=== PATIENT | female | born 1970 | race Caucasian/White ===

== ENCOUNTER → 2017-03-03 | Outpatient (CLI) | payer BC ==
[2016-04-04 18:50] VITALS: BP 151/86
[~2017-03-03] MED LIST: ANTIVERT 25MG25 MG; HCTZ 25MG25 MG; HYDROXYZINE PAM25 M1 PO; LEVOTHYROXINE PO; LISINOPRIL10 MG PO; PHENERGAN25 M4 RC; POTASSIUM20 MEQ PO; PREMARIN1.25 MG PO; PRILOSEC 20MG20 MG PO; PROVENTIL0.09 MG/A1 IH; SINGULAIR10 MG PO; VENLAFAXINE37.5 M1 PO
== END ==
LOC: LAB 07:04
DX: E03.4 Atrophy of thyroid (acquired) (principal); R53.83 Other fatigue

== ENCOUNTER → 2018-02-22 | Outpatient (CLI) | payer BC ==
[2016-04-04 18:50] VITALS: BP 151/86
== END ==
LOC: RAD 12:24
DX: M79.662 Pain in left lower leg (principal); M79.661 Pain in right lower leg; R22.43 Localized swelling, mass and lump, lower limb, bilateral; Z98.890 Other specified postprocedural states

== ENCOUNTER → 2018-06-03 | Outpatient (CLI) | payer BC ==
[2016-04-04 18:50] VITALS: BP 151/86
[2018-06-03 08:33] LABS: D-DIMER 0.2 mg/L FEU (0.15-0.50)
[2018-06-04 06:54] LABS: C-REACTIVE PROTEIN XXX
== END ==
LOC: LAB 07:22
PROVIDERS: Internal Medicine
DX: R22.43 Localized swelling, mass and lump, lower limb, bilateral (principal); R23.8 Other skin changes

== ENCOUNTER → 2022-02-05 | Outpatient (CLI) | payer BC | LOC: RAD 09:57 | DX: M25.512 Pain in left shoulder (principal) ==

== ENCOUNTER → 2022-02-13 | Outpatient (CLI) | payer BC | LOC: RAD 17:41 | DX: S49.82XA Other specified injuries of left shoulder and upper arm, initial encounter (principal); X58.XXXA Exposure to other specified factors, initial encounter ==